=== PATIENT | male | born 1990 | race African-American/Black ===

== ENCOUNTER 2023-10-09 11:07 | Emergency (ER) | payer OTHER ==
[~2023-10-09] VITALS: Ht 170.2 cm; Wt 68.0 kg
[2023-10-09 11:09] VITALS: O2SAT 100
[2023-10-09] MEDS: IBUPROFEN 600MG TABLET PO ONE (11:29)
[2023-10-09 12:45] VITALS: BP 129/76; PULSE 61; RESP 16; TEMP 98
== END 2023-10-09 12:53 | disposition home or self-care (01) ==
LOC: ER 11:07
DX: S90.122A Contusion of left lesser toe(s) without damage to nail, initial encounter (principal); W22.8XXA Striking against or struck by other objects, initial encounter; Y93.89 Activity, other specified; Y92.89 Other specified places as the place of occurrence of the external cause; Y99.8 Other external cause status
CPT/HCPCS: 73660; 99283